=== PATIENT | female | born 1945 | race African-American/Black ===

== ENCOUNTER 2021-03-02 06:57 | Emergency (ER) | payer OTHER ==
[~2021-03-02] VITALS: Ht 147.3 cm; Wt 83.9 kg
[~2021-03-02 06:57] MED LIST: BENADRYL25 MG PO; NORVASC10 MG PO; ZANTAC
[2021-03-02] MEDS ORDERED: NORVASC5 MG PO (07:14)
[2021-03-02 07:58] LABS: ABSOLUTE NEUTROPHILS 3.5 thou/uL (1.4-8.2); EOSINOPHILS 2.2 % (0.0-3.0); HEMATOCRIT 38.3 % (37.0-47.0); HEMOGLOBIN 12.9 gm/dL (12.0-15.0); LYMPHOCYTES 27.1 % (24.0-44.0); MCHC 33.6 g/dL (28.0-37.0); MCV 92.3 fL (80.0-100.0); MONOCYTES 10.7 % (1.0-8.0); PLATELET COUNT 206 thou/uL (150-400); RBC 4.14 mil/uL (4.20-5.00); RDW 13.3 % (10.5-14.5); WBC 5.9 thou/uL (4.0-11.0)
[2021-03-02 08:06] LABS: CALCIUM 9.3 mg/dL (8.5-10.1); CREATININE 1.2 mg/dL (0.6-1.0); POTASSIUM 3.1 mmol/L (3.5-5.1)
[2021-03-02 08:12] LABS: ALBUMIN 3.1 g/dL (3.4-5.0); TOTAL PROTEIN 7.3 g/dL (6.4-8.2)
[2021-03-02 10:22] VITALS: BP 156/74
--- NOTE | 2021-03-02 15:15 | EKG ---
[address] [place] [address] ELECTROCARDIOGRAM REPORT Name: TAI MCGINNIS Room #: [facility] [id number] Admission: 03/02/21 Attend Phys: Discharge: 03/02/21 Date of : 45 Report #: [id number] [facility] ED Test Date: 2021-03-02 Test Time: 07:59:57 Pat Name: TAI MCGINNIS Department: Room: Gender: F [employer] Operator: CONRAD : 1945 Requested By: Jen Hansen Order Number: [id number] MD: Peter Orourke Measurements Intervals [place] Rate: 86 P: 28 ME: 160 QRS: 57 QRSD: 123 T: 100 QT: 424 QTc: 508 Interpretive Statements Sinus rhythm Probable left atrial enlargement Nonspecific intraventricular conduction delay Nonspecific T abnormalities, lateral leads No previous ECG available for comparison Electronically Signed On 03-02-2021 15:15:36 CDT by Peter Orourke [email or web address] <ELECTRONICALLY SIGNED> By: Peter Orourke MD, [facility] 03/02/21 [id number] Peter Orourke MD, FACC /EPI
== END 2021-03-02 10:23 | disposition home or self-care (01) ==
LOC: ER 06:57
PROVIDERS: Emergency Medicine
DX: R60.0 Localized edema (principal); E87.6 Hypokalemia; I10 Essential (primary) hypertension; Z79.899 Other long term (current) drug therapy

== ENCOUNTER 2021-03-26 06:55 | Emergency (ER) | payer OTHER ==
[~2021-03-26] VITALS: Ht 149.9 cm; Wt 88.5 kg
[~2021-03-26 06:55] MED LIST changes: +NORVASC5 MG PO
[2021-03-26] MEDS ORDERED: HYDROCHLOROTHIA25 M1 PO (07:22)
[2021-03-26 07:50] VITALS: BP 166/71
== END 2021-03-26 08:25 | disposition home or self-care (01) ==
LOC: ER 06:55
DX: R60.0 Localized edema (principal); Z79.899 Other long term (current) drug therapy

== ENCOUNTER 2021-05-18 04:07 | Emergency (ER) | payer OTHER ==
[~2021-05-18] VITALS: Ht 149.9 cm; Wt 81.2 kg
[~2021-05-18 04:07] MED LIST changes: +HYDROCHLOROTHIA25 M1 PO
[2021-05-18 05:22] LABS: CREATININE 1.1 mg/dL (0.6-1.0)
[2021-05-18 05:27] LABS: ALBUMIN 2.9 g/dL (3.4-5.0); TOTAL BILIRUBIN 0.5 mg/dL (0.2-1.0); TOTAL PROTEIN 7.1 g/dL (6.4-8.2)
[2021-05-18 05:34] LABS: POTASSIUM 5.1 mmol/L (3.5-5.1)
[2021-05-18] MEDS ORDERED: LISINOPRIL2.5 MG PO (05:43)
[2021-05-18] MEDS ORDERED: HYDROCHLOROTHIA25 M1 PO (05:46)
[2021-05-18 06:06] VITALS: BP 171/76
== END 2021-05-18 06:05 | disposition home or self-care (01) ==
LOC: ER 04:07
PROVIDERS: Emergency Medicine
DX: M79.89 Other specified soft tissue disorders (principal); I10 Essential (primary) hypertension; Z90.49 Acquired absence of other specified parts of digestive tract